=== PATIENT | female | born 1960 | race Two or more races ===

== ENCOUNTER 2022-03-14 08:50 | Emergency (ER) | payer OTHER ==
[~2022-03-14] VITALS: Ht 162.6 cm; Wt 66.2 kg
[2022-03-14 09:39] LABS: Basophils # (auto) 0.2 10 ^3/uL (0-0.2); Basophils % (auto) 2.2 % (0.0-2.0); Eosinophils # (auto) 0.2 10 ^3/uL (0-0.8); Eosinophils % (auto) 2.8 % (0.0-7.0); Hematocrit 45.2 % (36.0-46.0); Lymphocytes # (auto) 2.5 10 ^3/uL (0.4-5.4); Lymphocytes % (auto) 35.3 % (10.0-50.0); Mean Corpuscular Hemoglobin 29.3 pg (28.0-32.0); Mean Corpuscular Hgb Conc. 33.3 g/dL (32.0-36.0); Mean Corpuscular Volume 88.1 fL (80.0-100.0); Monocytes # (auto) 0.5 10 ^3/uL (0-1.3); Monocytes % (auto) 7.6 % (0.0-12.0); Neutrophils # (auto) 3.7 10 ^3/uL (1.6-8.6); Neutrophils % (auto) 52.1 % (37.0-80.0); Nucleated Red Blood Cells % 0.1 %; Red Blood Cells 5.13 10^6/uL (4.0-5.20); Red Cell Distribution Width 13.6 % (11.8-14.3); White Blood Cell 7.2 10^3/uL (4.4-10.8)
[2022-03-14 09:57] LABS: Calcium 9.5 mg/dL (8.5-10.1)
[2022-03-14 10:03] LABS: Albumin 4.1 g/dL (3.4-5.0); BUN/Creatinine Ratio 12.4; Bilirubin, Total 0.6 mg/dL (0.2-1.0); Magnesium 2.9 mg/dL (1.6-2.6); Total Protein 7.7 g/dL (6.4-8.2)
[2022-03-14] MEDS ORDERED: POTASSIUM EFFERVESENT TAB 25 MEQ PO ONE (12:00)
[2022-03-14] MEDS ORDERED: DexAMETHasone SOD PHOS 10MG/1ML VIAL INJ IV ONE (14:00)
[2022-03-14] MEDS ORDERED: DEX4T PO (14:01)
[2022-03-14] MEDS ORDERED: METH500T22 PO (14:01)
[2022-03-14 14:35] VITALS: BP 135/81
[2022-03-14] MEDS ORDERED: DexAMETHasone SOD PHOS 4 MG/1ML SDV INJ IM ONE (14:45)
== END 2022-03-14 14:42 | disposition home or self-care (01) ==
LOC: ER 08:50
DX: G44.209 Tension-type headache, unspecified, not intractable (principal); E87.6 Hypokalemia; M47.892 Other spondylosis, cervical region; E11.9 Type 2 diabetes mellitus without complications; K21.9 Gastro-esophageal reflux disease without esophagitis; I10 Essential (primary) hypertension
CPT/HCPCS: 36415; 70450; 72125; 80053; 83735; 84484; 85025; 93005; 96372; 99285; J1100